=== PATIENT | female | born 1970 | race Caucasian/White ===

== ENCOUNTER 2017-09-14 16:02 | Emergency (ER) | payer SELFPAY ==
[~2017-09-14] VITALS: Ht 165.1 cm; Wt 104.5 kg
[2017-09-14 16:55] VITALS: BP 150/90; PULSE 82; TEMP 98.7
== END 2017-09-14 16:56 | disposition home or self-care (01) ==
LOC: COL.ER 16:02
DX: S93.402A Sprain of unspecified ligament of left ankle, initial encounter (principal); G43.909 Migraine, unspecified, not intractable, without status migrainosus; F17.210 Nicotine dependence, cigarettes, uncomplicated

== ENCOUNTER 2017-11-05 23:12 | Emergency (ER) | payer SELFPAY ==
[~2017-11-05] VITALS: Ht 165.1 cm; Wt 87.7 kg
[2017-11-05 23:22] VITALS: BP 160/77; TEMP 99.7
[2017-11-06] MEDS ORDERED: CEPHALEXIN500 M1 PO (00:59)
[2017-11-06 01:25] VITALS: PULSE 66
== END 2017-11-06 01:26 | disposition home or self-care (01) ==
LOC: COL.ER 23:12
DX: S91.331A Puncture wound without foreign body, right foot, initial encounter (principal); Z23 Encounter for immunization; W22.8XXA Striking against or struck by other objects, initial encounter; Y92.009 Unspecified place in unspecified non-institutional (private) residence as the place of occurrence of the external cause

== ENCOUNTER → 2017-12-29 | Outpatient (CLI) | payer OTHER ==
[~2017-12-29] MED LIST: CEPHALEXIN500 M1 PO
== END ==
LOC: MC.RAD 10:09
DX: N60.01 Solitary cyst of right breast (principal); N63.20 Unspecified lump in the left breast, unspecified quadrant; N63.32 Unspecified lump in axillary tail of the left breast; Z98.82 Breast implant status
CPT/HCPCS: G0279

== ENCOUNTER 2018-01-25 06:59 | Day surgery (SDC) | payer MEDICAID ==
[~2018-01-25] VITALS: Ht 165.1 cm; Wt 90.2 kg
[2018-01-25] VITALS (7 sets, daily range): BP systolic 112–150; BP diastolic 66–86; PULSE 61–85; TEMP 98.3–98.8
[2018-01-25] MEDS ORDERED: BENADRYL25 M2 PO (08:49)
[2018-01-25] MEDS ORDERED: PEPCID AC 10MG10 MG PO (08:50)
[2018-01-25] MEDS ORDERED: NORCO 325 MG-7.1 TAB PO (15:30)
== END 2018-01-25 17:40 | disposition home or self-care (01) ==
LOC: SDCO 06:59
DX: C50.812 Malignant neoplasm of overlapping sites of left female breast (principal); C77.3 Secondary and unspecified malignant neoplasm of axilla and upper limb lymph nodes; Z17.0 Estrogen receptor positive status [ER+]; Z80.3 Family history of malignant neoplasm of breast; G43.909 Migraine, unspecified, not intractable, without status migrainosus; F17.210 Nicotine dependence, cigarettes, uncomplicated; Z88.0 Allergy status to penicillin
CPT/HCPCS: A9541; J0690; J1100; J1170; J2405; J2704; J3010; J7120

== ENCOUNTER → 2018-02-03 | Outpatient (CLI) | payer MEDICAID ==
[~2018-02-03] MED LIST changes: +BENADRYL25 M2 PO; +NORCO 325 MG-7.1 TAB PO; +PEPCID AC 10MG10 MG PO
== END ==
LOC: COL.RAD 08:25
DX: C50.812 Malignant neoplasm of overlapping sites of left female breast (principal); C77.3 Secondary and unspecified malignant neoplasm of axilla and upper limb lymph nodes; Z98.890 Other specified postprocedural states; Z90.49 Acquired absence of other specified parts of digestive tract; Z90.710 Acquired absence of both cervix and uterus
CPT/HCPCS: A9503; Q9967

== ENCOUNTER 2018-02-24 06:15 | Day surgery (SDC) | payer MEDICAID ==
[~2018-02-24] VITALS: Ht 165.1 cm; Wt 88.5 kg
[~2018-02-24 06:15] MED LIST changes: -PEPCID AC 10MG10 MG PO; +PROTONIX 40MG T40 MG PO
[2018-02-24] MEDS ORDERED: TOPAMAX 25MG25 M1 PO (06:58)
[2018-02-24] MEDS ORDERED: CAPACET 325 MG-1 CAP PO (06:58)
[2018-02-24] MEDS ORDERED: ZOFRAN ODT4 MG PO ×2 (06:59→11:36)
[2018-02-24] MEDS ORDERED: WELLBUTRIN SR150 M1 PO (07:00)
[2018-02-24 07:32] LABS: HEMATOCRIT 45.2 % (37.0-47.0); HEMOGLOBIN 14.1 g/dl (12.5-16.0); MEAN CELL VOLUME 97 fl (80.0-100.0); MEAN CORPUSCULAR HEMOGLOBIN 30 pg (27.0-31.0); MEAN CORPUSCULAR HGB CONC 31 g/dl (33.0-37.0); MEAN PLATELET VOLUME 10.9 fl (7.4-10.4); PLATELET COUNT 193 K/mm3 (130-400); RED BLOOD COUNT 4.64 M/mm3 (4.10-5.30); REDCELL DISTRIBUTION WIDTH-CV 15.5 % (11.5-14.5)
[2018-02-24 07:42] LABS: ALBUMIN 3.8 gm/dL (3.5-5.0); BILIRUBIN,TOTAL 0.2 mg/dL (0.0-1.0); CALCIUM 9.2 mg/dL (8.4-10.2); CREATININE, serum 0.81 mg/dL (0.52-1.25); POTASSIUM 3.8 mmol/L (3.4-5.0)
[2018-02-24 07:49] VITALS: BP 135/73; PULSE 63; TEMP 98
[2018-02-24] MEDS ORDERED: NORCO 325 MG-51 TAB PO (11:36)
[2018-02-24 12:20] VITALS: BP 145/69; PULSE 74; TEMP 98
--- NOTE | 2018-02-24 12:20 | NUR ---
Patient arrives back from PACU alert, denies nausea, reports pain tolerable in left breast area 10. Patient monitor applied, vitals stable. Family brought to bedside.
[2018-02-24 12:30] VITALS: BP 145/85; PULSE 78
[2018-02-24 12:45] VITALS: BP 142/89; PULSE 98
--- NOTE | 2018-02-24 12:50 | NUR ---
Patient up to restroom at this time with standby assist and without any complications. Patient is able to urinate without any difficulties.
[2018-02-24 13:00] VITALS: BP 149/79; PULSE 78
--- NOTE | 2018-02-24 13:10 | NUR ---
Patient and patient's mother educated on how to drain/empty patient's drain and record the amount for Dr Campuzano. Drain emptied 15ml of blood drainage at this time. Dressing on left breast clean/dry/intact. Dress over port-a-cath site has two small pinpoint areas on bandage that were present upon arrival back from PACU. They have not gotten any bigger in size.
--- NOTE | 2018-02-24 13:15 | NUR ---
Patient reports pain is much better and that she is ready to go home.
--- NOTE | 2018-02-24 13:20 | NUR ---
Dismissal instructions gone over with patient and family. All verbalize understanding and all questions answered.
--- NOTE | 2018-02-24 13:25 | NUR ---
Patient discharged to home thanking staff for services.
[2018-02-24 14:32] VITALS: BP 145/69; PULSE 77
== END 2018-02-24 13:25 | disposition home or self-care (01) ==
LOC: SDCO 06:15
PROVIDERS: Surgery
DX: C50.412 Malignant neoplasm of upper-outer quadrant of left female breast (principal); C77.3 Secondary and unspecified malignant neoplasm of axilla and upper limb lymph nodes; Z17.0 Estrogen receptor positive status [ER+]; G43.909 Migraine, unspecified, not intractable, without status migrainosus; I10 Essential (primary) hypertension; K21.9 Gastro-esophageal reflux disease without esophagitis; F32.9 Major depressive disorder, single episode, unspecified; F17.210 Nicotine dependence, cigarettes, uncomplicated; Z90.710 Acquired absence of both cervix and uterus; Z90.49 Acquired absence of other specified parts of digestive tract; Z90.12 Acquired absence of left breast and nipple; Z82.3 Family history of stroke; Z80.3 Family history of malignant neoplasm of breast; Z83.3 Family history of diabetes mellitus; Z88.6 Allergy status to analgesic agent; Z88.0 Allergy status to penicillin; Z88.8 Allergy status to other drugs, medicaments and biological substances; F41.9 Anxiety disorder, unspecified
CPT/HCPCS: C1788; J0360; J0690; J1100; J1644; J2405; J2704; J2765; J3010; J7120

== ENCOUNTER → 2018-02-28 | Outpatient (CLI) | payer MEDICAID ==
[~2018-02-28] MED LIST changes: +CAPACET 325 MG-1 CAP PO; +NORCO 325 MG-51 TAB PO; +TOPAMAX 25MG25 M1 PO; +WELLBUTRIN SR150 M1 PO; +ZOFRAN ODT4 MG PO
== END ==
LOC: COL.VAS 10:26
DX: C50.412 Malignant neoplasm of upper-outer quadrant of left female breast (principal); I51.7 Cardiomegaly

== ENCOUNTER → 2018-10-27 | Outpatient (CLI) | payer MEDICAID | LOC: COL.RAD 13:58 | DX: C50.412 Malignant neoplasm of upper-outer quadrant of left female breast (principal); R26.89 Other abnormalities of gait and mobility | CPT/HCPCS: A9585 ==

== ENCOUNTER → 2019-01-11 | Outpatient (CLI) | payer MEDICAID | LOC: MC.RAD 13:12 | DX: Z12.31 Encounter for screening mammogram for malignant neoplasm of breast (principal); C50.412 Malignant neoplasm of upper-outer quadrant of left female breast; I10 Essential (primary) hypertension ==

== ENCOUNTER → 2019-04-26 | Outpatient (CLI) | payer MEDICAID | LOC: COL.RAD 09:02 | DX: C50.412 Malignant neoplasm of upper-outer quadrant of left female breast (principal) | CPT/HCPCS: A9503; J1644 ==

== ENCOUNTER 2019-05-10 07:56 | Outpatient (RCR) | payer MEDICAID | END 2019-08-08 | disposition home or self-care (01) | LOC: MKS.ESL.PT | DX: C50.412 Malignant neoplasm of upper-outer quadrant of left female breast (principal); I10 Essential (primary) hypertension ==

== ENCOUNTER → 2019-06-29 | Outpatient (CLI) | payer MEDICAID | LOC: MC.RAD 08:50 | DX: C50.412 Malignant neoplasm of upper-outer quadrant of left female breast (principal); Z98.890 Other specified postprocedural states; Z92.3 Personal history of irradiation | CPT/HCPCS: G0279 ==

== ENCOUNTER → 2019-08-08 | Outpatient (CLI) | payer MEDICAID | LOC: MC.RAD 08:58 | DX: C50.412 Malignant neoplasm of upper-outer quadrant of left female breast (principal); Z98.890 Other specified postprocedural states ==

== ENCOUNTER → 2020-01-24 | Outpatient (CLI) | payer MEDICAID | LOC: MC.RAD 01-10 13:00 | DX: Z12.31 Encounter for screening mammogram for malignant neoplasm of breast (principal); Z85.3 Personal history of malignant neoplasm of breast; Z92.3 Personal history of irradiation ==

== ENCOUNTER 2020-03-28 05:46 | Day surgery (SDC) | payer MEDICAID ==
[2020-03-28] VITALS (11 sets, daily range): BP systolic 103–226; BP diastolic 90–119; PULSE 60–72; TEMP 97.9
[~2020-03-28] VITALS: Ht 165.1 cm; Wt 52.4 kg
[2020-03-28] MEDS ORDERED: RELPAX20 MG PO (06:19)
[2020-03-28] MEDS ORDERED: VALIUM 10MG10 MG/TAB PO (06:20)
[2020-03-28] MEDS ORDERED: NORCO 325 MG-51 TAB PO (06:20)
[2020-03-28] MEDS ORDERED: CEPHALEXIN500 M1 PO (06:21)
[2020-03-28] MEDS ORDERED: ZANAFLEX CAPSULE4 MG PO (06:21)
[2020-03-28] MEDS ORDERED: PROPECIA1 MG PO (06:22)
[2020-03-28] MEDS ORDERED: ZOFRAN 4MG T4 MG/TAB PO (06:22)
[2020-03-28] MEDS ORDERED: TOPROL XL100 MG PO (06:22)
[2020-03-28] MEDS ORDERED: NURTEC ODT75 MG PO (06:25)
[2020-03-28] MEDS ORDERED: ZOVIRAX400 MG PO (06:25)
[2020-03-28] MEDS ORDERED: TOPAMAX50 MG PO (06:26)
[2020-03-28] MEDS ORDERED: DESYREL 100MG100 MG PO (06:26)
[2020-03-28] MEDS ORDERED: AMBIEN CR 12.12.5 MG PO (06:27)
[2020-03-28] MEDS ORDERED: MARINOL5 MG PO (06:27)
[2020-03-28] MEDS ORDERED: COMPAZINE 110 MG/TAB PO (06:27)
[2020-03-28] MEDS ORDERED: MIRALAX PA17 GM/Dose PO (06:28)
[2020-03-28] MEDS ORDERED: COLACE 100100 MG/CAP PO (06:29)
[2020-03-28] MEDS ORDERED: BENADRYL50 MG PO (06:31)
[2020-03-28] MEDS ORDERED: NATURAL E400 IU PO (06:32)
[2020-03-28] MEDS ORDERED: BOTOX 100100 U/VIAL IM (06:32)
[2020-03-28 07:37] LABS: INR 0.9 (0.8-3.0); PROTHROMBIN TIME 9.6 SECONDS (9.7-12.8)
[2020-03-28 07:38] LABS: CALCIUM 9.5 mg/dL (8.4-10.2); CREATININE, serum 0.64 (0.52-1.25); POTASSIUM 4.1 mmol/L (3.4-5.0)
[2020-03-28 07:39] LABS: PARTIAL THROMBOPLASTIN TIME 22.9 SECONDS (26.0-37.0)
--- NOTE | 2020-03-28 08:34 | NUR ---
SEE MERGE DOCUMENTATION FOR MEDICATION ADMINISTRATION TIMES AND INTRA/POST PROCEDURE SEDATION ASSESSMENTS. RIGHT HAND BARBEAU TEST POSITIVE. UNABLE TO OBTAIN PERIPHERAL IV ACCESS. MD TO OBTAIN ACCESS TO RIGHT BRACHIAL VEIN IN [employer].
--- NOTE | 2020-03-28 09:34 | NUR ---
Report from Braden MARTINEZ. Transferred by bed from molder labels. Right Tband with 17 cc air, good pulses and cap refill < 3 secs. VSS at baseline
--- NOTE | 2020-03-28 13:19 | NUR ---
17 ml air released from right Tband. Dressing applied and INT discontinued intact.
--- NOTE | 2020-03-28 13:55 | NUR ---
Discharge instructions given. Transferred to private car by [facility]
== END 2020-03-28 13:55 | disposition home or self-care (01) ==
LOC: COL.CAR 05:46
PROVIDERS: Internal Medicine Interventional Cardiology
DX: R07.89 Other chest pain (principal); R55 Syncope and collapse; I10 Essential (primary) hypertension; W19.XXXA Unspecified fall, initial encounter; Z88.0 Allergy status to penicillin; Z88.6 Allergy status to analgesic agent; Z88.5 Allergy status to narcotic agent; Z20.822 Contact with and (suspected) exposure to COVID-19
CPT/HCPCS: J1644; J2250; J3010; Q9967

== ENCOUNTER → 2020-08-08 | Outpatient (CLI) | payer MEDICAID ==
[~2020-08-08] MED LIST changes: +AMBIEN CR 12.12.5 MG PO; +BENADRYL50 MG PO; +BOTOX 100100 U/VIAL IM; +COLACE 100100 MG/CAP PO; +COMPAZINE 110 MG/TAB PO; +DESYREL 100MG100 MG PO; +MARINOL5 MG PO; +MIRALAX PA17 GM/Dose PO; +NATURAL E400 IU PO; +NURTEC ODT75 MG PO; +PROPECIA1 MG PO; +RELPAX20 MG PO; +TOPAMAX50 MG PO; +TOPROL XL100 MG PO; +VALIUM 10MG10 MG/TAB PO; +ZANAFLEX CAPSULE4 MG PO; +ZOFRAN 4MG T4 MG/TAB PO; +ZOVIRAX400 MG PO
== END ==
LOC: MC.RAD 08:47
DX: C50.412 Malignant neoplasm of upper-outer quadrant of left female breast (principal)

== ENCOUNTER → 2021-01-26 | Outpatient (CLI) | payer MEDICAID | LOC: MC.RAD 09:53 | DX: Z12.31 Encounter for screening mammogram for malignant neoplasm of breast (principal); Z98.890 Other specified postprocedural states; Z92.3 Personal history of irradiation ==

== ENCOUNTER → 2021-03-03 | Outpatient (CLI) | payer MEDICAID | LOC: COL.RAD 10:10 | DX: C50.412 Malignant neoplasm of upper-outer quadrant of left female breast (principal); N63.20 Unspecified lump in the left breast, unspecified quadrant ==

== ENCOUNTER → 2021-04-13 | Outpatient (CLI) | payer MEDICAID ==
[~2021-04-13] MED LIST changes: +ARIMIDEX1 MG PO; +CARDIZEM CD 24240 MG PO; +ENULOSE10 GM/151 PO; +KLONOPIN 0.5MG0.5 MG PO; +LIPITOR 10MG10 MG PO; +LUNESTA2 MG PO; +NITROSTAT0.4 MG/TAB SL; +PREDNISONE20 MG PO; +REQUIP0.25 MG PO; +VITAMIN D250 MCG PO
== END ==
LOC: MC.RAD 07:00
DX: N63.22 Unspecified lump in the left breast, upper inner quadrant (principal); R22.2 Localized swelling, mass and lump, trunk

== ENCOUNTER → 2021-04-17 | Outpatient (CLI) | payer MEDICAID | LOC: MC.RAD 09:05 | DX: N63.10 Unspecified lump in the right breast, unspecified quadrant (principal); C50.412 Malignant neoplasm of upper-outer quadrant of left female breast ==

== ENCOUNTER → 2021-10-09 | Outpatient (CLI) | payer MEDICAID | LOC: COL.RAD 09:11 | DX: C50.919 Malignant neoplasm of unspecified site of unspecified female breast (principal); M48.54XA Collapsed vertebra, not elsewhere classified, thoracic region, initial encounter for fracture ==

== ENCOUNTER → 2021-10-14 | Outpatient (CLI) | payer MEDICAID | LOC: COL.RAD 09:15 | DX: C50.919 Malignant neoplasm of unspecified site of unspecified female breast (principal) | CPT/HCPCS: A9503 ==

== ENCOUNTER 2022-03-25 05:53 | Outpatient (CLI) | payer OTHER ==
[~2022-03-25] VITALS: Ht 165.1 cm; Wt 101.9 kg
[~2022-03-25 05:53] MED LIST changes: +ALDACTONE 25MG25 M1 PO; +AMITRIPTYLINE H25 M1 PO; +BACTRIM DS 8001 TAB PO; +CARTIA XT240 MG PO; +CORDARONE200 MG/TAB PO; +CYANOCOBAL1000 MCG/M IM; +DAYVIGO10 MG PO; +DEMADEX 20MG20 M1 PO; +DEMADEX10 MG PO; +ELIQUIS 5MG PO; +FLOMAX 0.40.4 MG/CAP PO; +K-DUR 10 MEQ T10 MEQ PO; +K-TAB10 PO; +LINZESS290CAP PO; +LIPITOR 40MG TA40 MG PO; +NAPROSYN500 MG PO; +NEURONTIN300 MG/CAP PO; +NICODERM C21 MG/PATC TD; +PACERONE200 MG PO; +SOAANZ40 MG PO; +TOPROL XL 25MG25 MG PO; +TORADOL 10MG TA10 MG PO; +VESICARE10 MG PO; +VIIBRYD20 MG PO
[2022-03-25 07:30] VITALS: BP 136/78; PULSE 57; TEMP 97.4
--- NOTE | 2022-03-25 07:30 | NUR ---
Pt arrived this am at 0600 to [facility].Pt reported to this nurse she wears oxygen at home at night and is sopose to wear oxygen during the day but reports she does not.Pt did not arrived with portable oxygen.Pt saturations in low 70s on room air.As patient speaking to this nurse< pt desats to 65% on room air.Oxygen applied at 2 liters per pt reort of what she dose at home.Pt SAt increases to 80%.RT here to assist.Oxygen increased to 5L/nc.After about 10 minutes pt oxygen able to be lowed back to 3l.Pt will remain on oxygen while at hospital.This nurse reported to Dr Sylvester.Order received for O2 while here.
[2022-03-25] MEDS ORDERED: ELIQUIS 5MG PO (07:50)
--- NOTE | 2022-03-25 08:00 | NUR ---
Procedure cancelled per Dr Sylvester.CT scan ordered today prior to departure.
[2022-03-25] MEDS ORDERED: LIPITOR 40MG TA40 MG PO (08:24)
[2022-03-25] MEDS ORDERED: CORDARONE200 MG/TAB PO (08:25)
[2022-03-25] MEDS ORDERED: TOPROL XL 25MG25 MG PO (08:25)
[2022-03-25] MEDS ORDERED: ALDACTONE 25MG25 M1 PO (08:28)
[2022-03-25] MEDS ORDERED: SOAANZ40 MG PO (08:29)
[2022-03-25] MEDS ORDERED: VESICARE10 MG PO (08:33)
[2022-03-25] MEDS ORDERED: NEURONTIN300 MG/CAP PO (08:34)
[2022-03-25] MEDS ORDERED: NORCO 325 MG-51 TAB PO (08:35)
--- NOTE | 2022-03-25 08:44 | NUR ---
Dr Sylvester visited with pt multiple times this morning.Procedure canceled for today for multiple reasons per Dr Sylvester.Per pt report she does not want to send home for oxygen bottle for transport back home.Pt reports she is going home without oxygen but agrees to bring portable bottles for future outings.Education provided to patient about risks of low oxygen levels and risks of discharging home without oxygen.[employer] Esther notified.Pt has oxygen available to her at home with portable travel tanks but did not bring them.Dr aware of patients requests.Phone number for PCP provided to Dr Sylvester per his request.
--- NOTE | 2022-03-25 08:53 | NUR ---
WAS CALLED TO [facility] BY RN. RN STATED PATIENT DIDN'T WEAR HOME O2 TO HOSPITAL AND PATIENT WAS LOW 70S SATURATION AND RN PLACE PATIENT ON 4LNC. RT ARRIVED TO ROOM PATIENT NOT IN DISTRESS ON 4L NC SATURATION AT 96% WITH HR 64. RT CHECKED IN ON PATIENT AN HOUR LATER AND PATIENT WAS ON 3L SAURATION AT 96%. PATIENT STATES SHE WEARS 2-3L NC AT HOME. PATIENT DOES NOT HAVE ANY OXYGEN TO GO HOME ON RN AWARE.
--- NOTE | 2022-03-25 09:05 | NUR ---
Discharge instructions given to pt.Pt verbalizes understanding.educations provided again about risks of leaving hospital with home oxygen.Pt reports her LIFT ride is here.Pt escorted out via her own home wheelchair.
== END 2022-03-25 09:16 ==
LOC: COL.CAR 05:53
DX: M48.54XA Collapsed vertebra, not elsewhere classified, thoracic region, initial encounter for fracture (principal); I50.9 Heart failure, unspecified; J90 Pleural effusion, not elsewhere classified